=== PATIENT | male | born 1955 | race Caucasian/White ===

== ENCOUNTER → 2020-02-03 | Outpatient (CLI) ==
[~2020-02-03] MED LIST: FENO145T7 PO; FLUO0.0112 TOP; HYDR25TAB PO; LEVO175T2 PO; LOSA50TA88 PO; PANT40TA29 PO; XANA0.5T PO
== END ==
LOC: EDUNIT# 02-02 11:35 → M LABSMTC 13:46
PROVIDERS: ATTEND Anesthesiology
DX: Z01.812 Encounter for preprocedural laboratory examination (principal); Z20.828 Contact with and (suspected) exposure to other viral communicable diseases

== ENCOUNTER 2020-02-07 06:00 | Inpatient (IN) | payer MEDICARE, BC ==
--- NOTE | 2020-02-04 11:24 | HPE ---
DATE OF ANTICIPATED ADMISSION: 02/07/2020 ATTENDING PHYSICIAN: Dr. Carroll Joya CHIEF COMPLAINT: Left hip degenerative arthritis. HISTORY: Patient is a pleasant 64-year-old male with progressively worsening left hip pain and stiffness. He failed to improve with conservative measures. He continued to have symptoms with weightbearing activities and activities of daily living. He consented for an elective left total hip arthroplasty with Dr. Joya for his continued symptoms. Medical optimization completed with Tunde PIPER. CURRENT MEDICATIONS: - acetaminophen 500 mg every 6 hours as needed - Xanax 0.25 mg up to three times daily if needed - Synthroid 175 mcg daily - losartan 50 mg daily - Tricor 145 mg daily - hydrochlorothiazide 25 mg daily - ibuprofen 200 mg as needed three times daily PAST MEDICAL HISTORY: 1. Hypertension. 2. Nephrolithiasis. 3. Hypothyroidism. 4. Hyperlipidemia. 5. Chronic sinusitis. 6. Anxiety. ALLERGIES: CODEINE. PAST SURGICAL HISTORY: Appendectomy. SOCIAL HISTORY: Patient denies tobacco use. Drinks in moderation. REVIEW OF SYSTEMS: Patient denies fever, chills,, nausea, vomiting, or diarrhea. Denies chest pain, shortness of breath, lightheadedness, dizziness, or headaches. Denies any abdominal pain. Denies any recent upper respiratory or urinary tract infection symptoms. Patient does continue to get left hip pain with weightbearing activities and activities of daily living. PHYSICAL EXAMINATION: GENERAL: Well-developed, well-nourished male in no apparent distress. He is alert, oriented, and cooperative. Mood and affect are appropriate. VITAL SIGNS: Height 5 feet 8 inches, weight 200 pounds. Temperature 97.1, blood pressure 138/80, respirations 16, heart rate 78. NECK: Supple without lymphadenopathy. HEART: Regular rate and rhythm. LUNGS: Clear to auscultation bilaterally. Breathing is regular and nonlabored. ABDOMEN: Soft and nontender. Bowel sounds are present. MUSCULOSKELETAL: Left hip exhibits no gross abnormalities. Skin is intact. Patient has decreased flexion, internal and external rotation at the hip. Strength in the left lower extremity is 5/5. Calf is soft and nontender without evidence of deep venous thrombosis (DVT). He is neurovascular intact distally. LABORATORY DATA: Chest x-ray: No focal consolidation. Left hip x-ray notable for end-stage degenerative changes. Comprehensive metabolic profile: Fasting glucose 91, sodium 142, potassium 4.3, chloride 106, CO2 of 33, anion gap decreased at 7.3, BUN elevated at 27, creatinine elevated at 1.510. Calcium 10.1. Alkaline phosphatase 48, total protein 7.4, albumin 4.4, globulin 3.0, albumin/globulin ratio 1.5, total bilirubin 0.3, AST 23, GFR 50, ALT 22. INR 0.94. Complete blood count: WBC 7.4, RBC decreased at 4.45, hemoglobin 14.2, hematocrit decreased at 41.1, platelets 309. Erythrocyte sedimentation rate 0. IMPRESSION: Left hip degenerative arthritis with x-rays notable for end-stage degenerative changes. PLAN: Patient has consented for an elective left total hip arthroplasty with Dr. Joya for his continued symptoms. Medical optimization completed with FELIZ Charles. Patient will use his Bactroban and Hibiclens as directed. He did get his COVID test. Patient will follow his primary manager career's recommendations for how to take his daily medications. He will be nothing by mouth after midnight the night prior to surgery, unless his primary care told him to take a medicine with a small sip of water. ANDI
[~2020-02-07] VITALS: Ht 172.7 cm; Wt 91.6 kg
[2020-02-07] VITALS (8 sets, daily range): BP systolic 114–133; BP diastolic 56–80
[~2020-02-07 06:00] MED LIST changes: +ACETAMINOPHEN 500 MG TAB PO ONE; +LR 1,000 ML IV ONE; +ceFAZolin SOD 2 GM in IV 1 EA IV ONE
[2020-02-07] MEDS ORDERED: TRANEXAMIC ACID 100 MG/ML 10ML VIAL As Ordered ONE (07:11)
[2020-02-07] MEDS ORDERED: EPINEPHrine INJ 1 MG/ML 1ML AMP As Ordered ONE (07:12)
[2020-02-07] MEDS ORDERED: ceFAZolin 1GM VIAL (J0690 PER 500MG) As Ordered ONE (07:12)
[2020-02-07] MEDS ORDERED: LIDOCAINE 2% 100MG/5ML SDV (FOR ANES.) As Ordered ONE (07:15)
[2020-02-07] MEDS ORDERED: fentaNYL 100 MCG/2 ML INJECTION (J3010) As Ordered ONE (07:16)
[2020-02-07] MEDS ORDERED: MIDAZOLAM INJ 2MG/2ML VIAL (J2250 PER 1MG) As Ordered ONE (07:16)
[2020-02-07] MEDS ORDERED: propofoL 500 MG/50 ML VIAL As Ordered ONE (07:16)
[2020-02-07] MEDS ORDERED: PHENYLephrine HCL 500 MCG/5 ML (100MCG/ML) SYRINGE (J2370) As Ordered ONE ×2 (08:13→09:03)
[2020-02-07] MEDS ORDERED: ePHEDrine SULFATE 25 MG/5 ML(5MG/ML) SYRINGE As Ordered ONE (08:13)
[2020-02-07] MEDS ORDERED: KETOROLAC 60MG 2ML VIAL As Ordered ONE (09:19)
[2020-02-07] MEDS ORDERED: ONDANSETRON 4MG/2ML VIAL As Ordered ONE (09:19)
[2020-02-07] MEDS ORDERED: ONDANSETRON 4MG/2ML VIAL IV PRN ×2 (10:00→10:15)
[2020-02-07] MEDS ORDERED: PERCOCET 5MG/325MG TAB PO PRN ×2 (10:00→10:15)
[2020-02-07] MEDS ORDERED: LR 1,000 ML IV SCH ×2 (10:00→12:45)
[2020-02-07] MEDS ORDERED: fentaNYL 100 MCG/2 ML INJECTION (J3010) IV PRN (10:00)
[2020-02-07] MEDS ORDERED: METOCLOPRAMIDE INJ 10MG/2ML VIAL (J2765 PER 1) IV PRN (10:00)
[2020-02-07] MEDS ORDERED: ACETAMINOPHEN TAB 650MG DOSE (2X325MG) PO PRN (10:15)
[2020-02-07] MEDS ORDERED: MORPHINE 4 MG/ML 1ML VIAL/SYRINGE (J2270) IV PRN (10:15)
[2020-02-07] MEDS ORDERED: ceFAZolin SOD 2 GM in IV 1 EA IV SCH (10:15)
--- NOTE | 2020-02-07 10:32 | REP ---
INDICATION: POST OP Status post left hip replacement. COMPARISON: None. TECHNIQUE: Portable AP and cross-table lateral views. FINDINGS: The patient is noted to be status post left hip arthroplasty with normal appearance and positioning to the femoral and acetabular components. Overlying postsurgical changes are appreciated. IMPRESSION: Normal status post left hip arthroplasty. <Electronically signed by Michael Taylor > 02/07/20 1020
--- NOTE | 2020-02-07 12:09 | HPEPDOC ---
[facility] Medical History & Physical Date of Admission Feb 07, 2020 Date of Service: Feb 07, 2020 History and Physical CHIEF COMPLAINT: Post left hip arthroplasty medical consultation HISTORY OF PRESENT ILLNESS: 64-year-old male past medical history of hypertension, hypothyroidism, hyperlipidemia, and anxiety who was admitted for left hip arthroplasty due to worsening arthritis which failed conservative treatment. Patient was taken for left hip arthroplasty today by Dr. Joya. Postoperatively patient was seen and examined at bedside. Patient tells me he is feeling well currently and believes the pain is well-controlled at this time. PAST MEDICAL HISTORY: Hypertension Hypothyroidism Anxiety Hyperlipidemia Chronic sinusitis History of nephrolithiasis status post post lithotripsy PAST SURGICAL HISTORY: Appendectomy Lithotripsy SOCIAL HISTORY: Endorses he drinks alcohol socially 1-2 times per week Denies tobacco use Denies illicit drug use FAMILY HISTORY: Reviewed and noncontributory ALLERGIES: Please see below. REVIEW OF SYSTEMS: 10 point review of systems complete all negative otherwise stated in HPI HOME MEDICATIONS: Please see below. PHYSICAL EXAMINATION: Constitutional: Awake and alert, in no apparent distress ENT: Sclera are clear. Mucosa is moist. Respiratory: Lungs CTA bilaterally. No respiratory distress. No use of accessory muscles. Cardiovascular: RRR S1 and S2 are normal, no murmur Gastrointestinal: Abdomen is soft, non distended, non tender, BS present. Musculoskeletal: No LE edema Neurologic: No focal neurological deficit. Mental Status: A&O x3, normal affect Skin: Warm, dry LABORATORY DATA: See below. IMAGING: Left hip x-ray: Normal status post left hip arthroplasty MICROBIOLOGY: Please see below. ASSESSMENT/PLAN 64-year-old male past medical history of hypertension, hypothyroidism, hyperlipidemia, and anxiety who was admitted for left hip arthroplasty 02/07/2020. I was consulted for medical management of patients chronic medical problems.. # Left hip arthroplasty: Pain control. IV morphine when necessary for breakthrough pain. Management per ortho. ASA 35 days BID per ortho. # Hypertension: Currently normotensive. Hold home meds. Monitor and titrate. Pain control. # Hyperlipidemia: Patient states he is on fenofibrate for over 1 year. We'll obtain lipid panel first evaluate need for fenofibrate. May benefit from statin instead if TG are ok # Hypothyroidism: Resume Synthroid. Fu TSH. # Anxiety: No recent history of anxiety or panic attacks. Can follow-up with PCP # DVT prophylaxis: per primary. I would recommend heparin in addition to the twice daily aspirin if no contraindications [facility] Vital Signs Vital Signs Date Time Temp Pulse Resp B/P (MAP) Pulse Ox O2 Delivery O2 Flow Rate FiO2 02/07/20 11:45 97.1 66 16 114/56 (75) 100 Room Air 02/07/20 10:30 2 Home Medications Scheduled Fenofibrate Nanocrystallized (Fenofibrate) 145 Mg Tablet, 1 TAB PO DAILY Hydrochlorothiazide (Hydrochlorothiazide) 25 Mg Tablet, 25 MG PO DAILY Levothyroxine Sodium (Levothyroxine Sodium) 175 Mcg Tablet, 175 MCG PO DAILY Losartan Potassium (Losartan Potassium) 50 Mg Tablet, 50 MG PO DAILY Allergies Coded Allergies: No Known Allergies (Unverified , 01/31/20) A-FIB/CHADSVASC A-FIB History Current/History of A-Fib/PAF?: No LILIAM PORTILLO MD Feb 07, 2020 12:08
[2020-02-07 12:41] LABS: HEMATOCRIT 36.9 % (42.0-52.0); HEMOGLOBIN 12.6 g/dl (13.5-17.5); MEAN CORPUSCULAR HEMOGLOBIN 31.2 pg (27.0-33.0); MEAN CORPUSCULAR HGB CONC 34.1 g/dl (32.0-36.5); MEAN CORPUSCULAR VOLUME 91.3 fl (80.0-96.0); PLATELET COUNT, AUTOMATED 263 10^3/uL (150-450); RED BLOOD COUNT 4.04 10^6/uL (4.30-6.10); WHITE BLOOD COUNT 7.6 10^3/uL (4.0-10.0)
[2020-02-07 12:55] LABS: BLOOD UREA NITROGEN 15 MG/DL (7-18); CALCIUM LEVEL 9.2 MG/DL (8.8-10.2); CARBON DIOXIDE LEVEL 28 MEQ/L (21-32); CHLORIDE LEVEL 107 MEQ/L (98-107); GLOMERULAR FILTRATION RATE > 60.0 (>49); GLUCOSE, FASTING 96 MG/DL (70-100); POTASSIUM SERUM 4.3 MEQ/L (3.5-5.1); SODIUM LEVEL 141 MEQ/L (136-145)
[2020-02-07 13:36] LABS: CHOLESTEROL RISK RATIO 8.185 (<5); FREE T4 1.34 NG/DL (0.76-1.46); THYROID STIMULATING HORMONE 0.54 uIU/ML (0.358-3.740)
[2020-02-07] MEDS: ceFAZolin SOD 2 GM in IV 1 EA IV SCH ×2 (14:35→23:20)
[2020-02-07] MEDS: PERCOCET 5MG/325MG TAB PO PRN ×2 (14:36→23:28)
[2020-02-07] MEDS: ASPIRIN 81 MG ENTERIC TAB PO SCH (20:15)
[2020-02-08 02:00] VITALS: BP 107/68
[2020-02-08] MEDS: PERCOCET 5MG/325MG TAB PO PRN (05:55)
[2020-02-08] MEDS: ceFAZolin SOD 2 GM in IV 1 EA IV SCH (05:56)
[2020-02-08 06:00] VITALS: BP 135/86
[2020-02-08] MEDS ORDERED: LEVOTHYROXINE 100MCG TABLET (0.1MG) PO SCH (06:00)
[2020-02-08] MEDS ORDERED: LEVOTHYROXINE 75MCG TABLET (0.075MG) PO SCH (06:00)
--- NOTE | 2020-02-08 07:17 | RO ---
DATE OF OPERATION: 02/07/2020 PREOPERATIVE DIAGNOSIS: Left hip degenerative arthritis. POSTOPERATIVE DIAGNOSIS: Left hip degenerative arthritis. PROCEDURE: Left total hip arthroplasty using a size 5 Jackson standard offset stem with a 1.5 neck, 40 mm head, 56 mm Mansfield cup with a 40 mm polyethylene neutral liner. Prosthesis was made by [employer]. SURGEON: Marge Joya M.D. ACID CORRECTION HAND: FELIZ Castillo ANESTHESIA: Spinal. COMPLICATIONS: None. SPECIMENS: Femoral head. ESTIMATED BLOOD LOSS: 200 mL. PROCEDURE: Antibiotics were given intravenously preoperatively and a successful spinal anesthetic was induced. He was placed in the lateral decubitus position, Raheem hip positioner was utilized, down leg well padded, especially peroneal nerve, and axillary roll was utilized. Left hip area was then carefully prepped and draped in the usual sterile fashion. After appropriate time out a longitudinal incision was made for a direct lateral approach to the hip. Bovie cautery was used to coagulate the crossing vessels. Tensor fascia divided in line with the skin incision and then we split the gluteus medius anterior one- third and posterior two-third junction, carefully dissected down to the gluteus minimus and then anterior hip capsule and carefully dissected off the anterior aspect of the hip as we dislocated the hip anteriorly and placed the leg in leg bag. The piriformis fossa was cleared and then the starter reamer placed followed by the canal finding reamer, then the lateralizing reamer, and then we reamed up to a size 5. Femoral neck osteotomy was then performed using the template and then we began broaching up to a size 5. Excellent fit and fill was noted. We then exposed the acetabulum. We performed labral excision 360 degrees. We then began reaming, beginning with 47 mm. We had to medialize a bit to get down to the cotyloid fossa and then expanded up to 55. The 56 cup trial fit nicely. I used the extramedullary alignment jig to estimate our version and abduction. I placed a trial polyethylene and irrigated out the femoral canal, placed a #5 broach. I first tried the high offset stem with 40 mm head but the hip was very difficult to relocate, the soft tissues had too much tension to allow reduction. Thus I trialed with standard offset stem, hip reduced nicely and the hip was very stable to flexion, internal rotation and extension and external rotation. The cup seemed to be in good position. There was minimal soft tissue telescoping. Thus I removed all the trial components at this point, copiously irrigated out the acetabulum. The real cup was then placed in the exact same position that we had previously placed and then used the extramedullary alignment jig to make sure abduction and version was appropriate and then placed the central hole eliminator and then the real polyethylene. We actually placed the real cup first and then trialed with trial polyethylene and did the reduction maneuver and then we removed the trial polyethylene and placed central hole eliminator and then placed the real polyethylene. We then copiously pulse lavaged irrigated out the femoral canal once again, then placed the real #5 stem. We dried the trunnion, placed the 40 mm x 1.5 ball and reduced the hip. We brought the hip through range of motion; again it was very stable to flexion, internal rotation, and extension and external rotation and there was minimal soft tissue telescoping. We then copiously irrigated again, placed Tranexamic Acid. We closed the anterior capsule with interrupted #1 PDS sutures, the gluteus minimus was closed back anatomically with interrupted #1 PDS sutures, then gluteus medius was closed back with #1 PDS sutures in layers. We then irrigated again and closed the tensor fascia with combination of #1 PDS suture and then running #1 Stratafix. We irrigated between layers and closed the deep subdermal tissues with interrupted 2-0 PDS suture and the skin was closed with rex, covered by an Optifoam and dry sterile bulky dressing. He was then turned supine and transferred to the recovery room in stable condition. There were no intraoperative complications. Celi Tyrone was critical to the success of this difficult procedure by helping with appropriate soft tissue retraction, helped with relocating and dislocating the hip several times throughout the operation, placing the leg bag, helped to close the wound and helped prepare the patient for surgery amongst many other tasks to allow me to perform the operation smoothly, efficiently and safely. ANDI
--- NOTE | 2020-02-08 07:20 | RO ---
DATE OF OPERATION: 02/06/2020 PROCEDURE: Right femoral vein hemodialysis catheter. INDICATION FOR PROCEDURE: End-stage renal disease and clotted right arm AV fistula. SURGEON: Ismael Caballero MD ANESTHESIA: 1% Lidocaine, 10 mL used. DESCRIPTION: Informed consent obtained from the patient and procedure was explained in detail along with risks, complications and alternatives. The patient yesterday declined transfer to [facility] for vascular surgery care. Her right arm AV fistula is thrombosed and she is in need for dialysis. Right femoral area was cleaned and prepped in usual sterile fashion. We used bedside ultrasound Doppler to assist with the catheter placement. 1% Lidocaine was used and attempt was made. However, her femoral vein could not be accessed. The patient was quite emotionally upset during the procedure and she cried and screamed throughout the procedure even though she was given Ativan prior to procedure. She was very anxious and could not tolerate the procedure very well. After a couple of attempts we abandoned the procedure as we could not get access to her femoral vein even with the help of bedside Doppler. I also requested help from Dr. Walters who also tried but could not locate her femoral vein. After that the procedure was abandoned and the patient was transferred [facility]
[2020-02-08 07:35] LABS: HEMATOCRIT 35.3 % (42.0-52.0); HEMOGLOBIN 12.1 g/dl (13.5-17.5); MEAN CORPUSCULAR HEMOGLOBIN 31.9 pg (27.0-33.0); MEAN CORPUSCULAR HGB CONC 34.3 g/dl (32.0-36.5); MEAN CORPUSCULAR VOLUME 93.1 fl (80.0-96.0); PLATELET COUNT, AUTOMATED 224 10^3/uL (150-450); RED BLOOD COUNT 3.79 10^6/uL (4.30-6.10); WHITE BLOOD COUNT 6.3 10^3/uL (4.0-10.0)
[2020-02-08 08:05] LABS: ALBUMIN 3.2 GM/DL (3.2-5.2); BILIRUBIN,TOTAL 0.4 MG/DL (0.2-1.0); CALCIUM LEVEL 8.6 MG/DL (8.8-10.2); CREATININE FOR GFR 1.73 MG/DL (0.70-1.30); GLOMERULAR FILTRATION RATE 42.4 (>49); POTASSIUM SERUM 3.8 MEQ/L (3.5-5.1); TOTAL PROTEIN 5.7 GM/DL (6.4-8.2)
[2020-02-08] MEDS ORDERED: PREVNAR 13 VACCINE SYRINGE IM ONE (09:00)
[2020-02-08] MEDS ORDERED: MIRALAX *UNIT DOSE* 17GM PACKET PO SCH (09:00)
[2020-02-08] MEDS ORDERED: MOM 30ML SUSPENSION UDC PO SCH (09:00)
[2020-02-08] MEDS: ASPIRIN 81 MG ENTERIC TAB PO SCH (09:12)
[2020-02-08 09:30] VITALS: BP 120/72
[2020-02-08] MEDS ORDERED: ECOT81TA5 PO (11:56)
[2020-02-08] MEDS ORDERED: PERC5TAB12 PO (11:56)
== END 2020-02-08 14:35 | disposition home or self-care (01) | DRG 470 ==
LOC: M OR 06:00 → M MS5PR 11:10
PROVIDERS: ADMIT Orthopaedic Surgery; ATTEND Orthopaedic Surgery
PROC: 0SRB02Z Replacement of Left Hip Joint with Metal on Polyethylene Synthetic Substitute, Open Approach (ICD-10-PCS; principal; 2020-02-07 07:30)
DX: M16.12 Unilateral primary osteoarthritis, left hip (principal); I10 Essential (primary) hypertension; E03.9 Hypothyroidism, unspecified; E78.5 Hyperlipidemia, unspecified; J32.9 Chronic sinusitis, unspecified; F41.9 Anxiety disorder, unspecified; Z88.5 Allergy status to narcotic agent; Z79.899 Other long term (current) drug therapy